=== PATIENT | female | born 2000 | race African-American/Black ===

== ENCOUNTER 2021-03-23 14:54 | Emergency (ER) | payer OTHER, SELFPAY ==
[2021-03-23 15:13] VITALS: BP 132/74; PULSE 92; RESP 18; TEMP 36.6; O2SAT 99; BMI 28.7
[2021-03-23] MEDS: Acetaminophen 325 MG TABLET PO (15:19)
[2021-03-23] MEDS: Ondansetron ODT 4 MG TAB.RAPDIS TRANSLINGU (15:19)
[2021-03-23 16:42] LABS: MANUAL DIFF FLAG NO
[2021-03-23 16:43] LABS: Basophils Percent Auto 0.4 % (0-2); Hemoglobin 15.2 g/dl (12.0-16.0); Imm Gran Abs Auto 0.03 X10*3/uL (0.00-0.03); Imm Gran Pct Auto 0.4 % (0.0-0.4); Lymphocytes Absolute Auto 1.1 X10*3/uL (1.2-4.9); Mean Corpuscular HGB Conc 33.8 g/dl (31.0-35.0); Mean Corpuscular Hemoglobin 29.9 pg (27.0-33.0); Mean Corpuscular Volume 88.6 fL (80.0-98.0); Mean Platelet Volume 10.1 fL (9.4-12.3); Monocytes Absolute Auto 0.5 X10*3/uL (0.1-1.2); Neutrophils Percent Auto 78.2 % (45-73); Platelet Count 258 X10*3/uL (160-400); Red Blood Count 5.08 X10*6/uL (4.20-5.50); Red Cell Distribution Width 13.2 % (11.0-16.0); White Blood Count 7.7 X10*3/uL (4.8-10.8)
[2021-03-23 16:59] LABS: Alanine Aminotransferase 16 U/L (0-31); Albumin Level 4.6 g/dL (3.5-5.0); Alkaline Phosphatase 61 U/L (39-117); Anion Gap 16 (12-20); Aspartate Amino Transferase 23 U/L (5-31); Bilirubin Direct 0.2 mg/dL (0.0-0.5); Bilirubin Total 0.6 mg/dL (0.0-1.0); Blood Urea Nitrogen 10 mg/dL (9-16); Calcium 10.2 mg/dL (8.4-10.2); Carbon Dioxide 28 mmol/L (22-29); Chloride 97 mmol/L (96-108); Creatinine Clr Calc Pharmacy 95.6; Estimated Glomerular Filt Rate > 60; Glucose Random 97 mg/dL (60-115); Lipase 28 U/L (8-78); Potassium 3.7 mmol/L (3.3-5.1); Sodium 137 mmol/L (135-145); Total Protein 7.7 g/dL (6.5-8.0)
== END 2021-03-23 20:08 | disposition left against medical advice (07) ==
PROVIDERS: Emergency Provider Emergency Medicine
DX: R10.9 Unspecified abdominal pain (principal); R11.0 Nausea; R19.7 Diarrhea, unspecified
CPT/HCPCS: 36415; 80048; 80076; 83690; 85025; 99283

== ENCOUNTER 2022-05-16 12:47 | Emergency (ER) | payer SELFPAY ==
--- NOTE | ~2022-05-16 | CT_ITS ---
EXAMINATION: CT ABDOMEN AND PELVIS WITHOUT CONTRAST CLINICAL INFORMATION: Abdominal pain. Colitis. COMPARISON: None TECHNIQUE: Multidetector volumetric imaging was performed from the superior aspect of the liver through the pubic symphysis. Sagittal and coronal reformatted images were obtained on the technologist's workstation. This CT examination was performed using dose optimization techniques as appropriate, variously including the following: *Automated exposure control *Adjustment of mA and/or kV according to patient size (this includes techniques or standardized protocols for targeted exams where dose is matched to indication/reason for exam; i.e. extremities or head) *Use of iterative reconstruction technique DLP: 387 mGy-cm FINDINGS: LUNG BASES: The visualized lung bases are unremarkable. LIVER, GALLBLADDER, AND BILIARY TREE: Small geographic area of hypoattenuation in the left liver lobe adjacent to falciform ligament consistent with focal fatty infiltration. Otherwise, normal hepatic attenuation in size. No liver lesion. No biliary ductal dilation. The gallbladder is unremarkable with no evidence of radiopaque gallstones, gallbladder wall thickening, or obvious pericholecystic inflammatory changes. PANCREAS: Unremarkable. SPLEEN: Unremarkable. ADRENAL GLANDS: Unremarkable. KIDNEYS AND URETERS: The kidneys are normal in size, shape, and attenuation. No hydronephrosis, hydroureter, or calculi seen. No perinephric stranding. BLADDER: Unremarkable. GASTROINTESTINAL TRACT: Somewhat thick-walled appearance of the transverse, descending and rectosigmoid colon which is at least partially secondary to lack of colonic distention. No appreciable pericolonic inflammatory fat stranding. No additional/definite bowel wall thickening. No dilated bowel loops. Normal appendix. Some high density ingested material in the ascending colon, nonspecific. No ascites or free air. ABDOMINAL WALL: No significant hernia is appreciated. LYMPH NODES: No lymphadenopathy. VASCULAR: Unremarkable. PELVIC VISCERA: IUD appears properly positioned in the uterus. Gynecologic structures otherwise grossly unremarkable, limited assessment. OSSEOUS STRUCTURES: Unremarkable. CT/CT abdomen pelvis wo IV con IMPRESSION: 1. Somewhat thick-walled appearance of the transverse, descending and rectosigmoid colon which is at least partially secondary to lack of colonic distention as opposed to true mild colonic wall thickening. No accompanying pericolonic inflammatory change. Cannot entirely exclude mild colitis. No other acute intra-abdominal process.
[2022-05-16 12:58] VITALS: BP 118/80; BP 120/73; PULSE 80; PULSE 90; RESP 18; TEMP 36.8; O2SAT 94; O2SAT 96; BMI 24.7
--- NOTE | 2022-05-16 13:01 | ED_ITS ---
HPI - General Adult General Chief complaint: Abdominal Pain Stated complaint: NAUSEA,VOMITING,BRIGHT RED BLOOD IN STOOL 1 WEEK Time Seen by Provider: 05/16/22 18:03 Related Data Previous Rx's Medication Instructions Recorded dicyclomine 20 mg tablet 20 mg PO BID #30 tabs 05/16/22 omeprazole magnesium 20 mg 20 mg PO BID #60 tabs 05/16/22 tablet,delayed release (Prilosec OTC) ondansetron 4 mg disintegrating 4 mg PO Q8H PRN nausea and 05/16/22 tablet vomiting #20 tabs promethazine 25 mg tablet 25 mg PO TID PRN nausea and 05/16/22 vomiting #30 tabs Allergies Allergy/AdvReac Type Severity Reaction Status Date / Time No Known Allergies Allergy Verified 05/16/22 12:59 [facility] Social History Social History Advance Directives: No Advance Directives Information Provided: No Physical Exam ED Vital Signs: BMI result Body Mass Index 24.7 Course Course Course Narrative: RME: 21 yold female with pmh presents to the for abdominal pain, blood in stool, nausea, vomitting, diarrhea for the past week. patient has pmh of colitis. patient states no vaginal bleeding, dysuria, or hematuria. Diffuse abdominal tenderness and more on the LLQ. Labs ordered Medications Administered Discontinued Medications Generic Name Dose Route Start Last Admin Trade Name Freq PRN Reason Stop Dose Admin Sodium Chloride 1,000 mls @ 999 mls/hr 05/16/22 18:30 05/16/22 20:45 Ns IV 05/16/22 19:30 Infused .Q1H1M FELIX Infusion Ondansetron HCl 4 mg 05/16/22 18:22 05/16/22 19:37 Ondansetron Hcl 4 Mg/2 Ml Vial IVPUSH 05/16/22 18:23 4 mg ONCE ONE Administration Pantoprazole Sodium 80 mg 05/16/22 18:22 05/16/22 19:36 Pantoprazole Sodium 40 Mg/10 Ml Vial IVPUSH 05/16/22 18:23 80 mg ONCE ONE Administration Medical Decision Making Lab Data 05/16/22 16:33 05/16/22 16:33 Labs: Lab Results 05/16/22 05/16/22 05/16/22 Range/Units 16:33 16:33 16:33 WBC 9.3 (4.8-10.8) X10*3/uL RBC 5.50 (4.20-5.50) X10*6/uL Hgb 16.8 H (12.0-16.0) g/dl Hct 49.3 H (37.0-47.0) % MCV 89.6 (80.0-98.0) fL MCH 30.5 (27.0-33.0) pg MCHC 34.1 (31.0-35.0) g/dl RDW 13.6 (11.0-16.0) % Plt Count 317 (160-400) X10*3/uL MPV 10.0 (9.4-12.3) fL Immature Gran % (Auto) 0.6 H (0.0-0.4) % Neut % (Auto) 76.6 H (45-73) % Lymph % (Auto) 16.2 L (20-40) % [place] % (Auto) 6.2 (2-11) % Eos % (Auto) 0.0 (0-4) % Baso % (Auto) 0.4 (0-2) % Lymph # (Auto) 1.5 (1.2-4.9) X10*3/uL [place] # (Auto) 0.6 (0.1-1.2) X10*3/uL Eos # (Auto) 0.0 (0.0-0.4) X10*3/uL Baso # (Auto) 0.0 (0.0-0.2) X10*3/uL Abs Immat Gran (auto) 0.06 H (0.00-0.03) X10*3/uL Absolute Neuts (auto) 7.1 (2.0-8.3) x10*3/uL Absolute Nucleated RBC 0.000 (0.0-0.012) X10*3/uL Nucleated RBC % (auto) 0.0 (0.0-0.2) /100WBC PT 13.8 H (10.0-13.1) SEC INR 1.2 H (0.9-1.1) APTT 36.7 H (26.0-36.4) SEC Sodium 140 (135-145) mmol/L Potassium 3.6 (3.3-5.1) mmol/L Chloride 96 (96-108) mmol/L Carbon Dioxide 30 H (22-29) mmol/L Anion Gap 18 (12-20) BUN 8 L (9-16) mg/dL Creatinine 0.84 (0.5-1.4) mg/dL Estim Creat Clear Calc 90.4 Estimated GFR > 60 Random Glucose 86 (60-115) mg/dL Calcium 10.1 (8.4-10.2) mg/dL Total Bilirubin 0.6 (0.0-1.0) mg/dL AST 22 (5-31) U/L ALT 16 (0-31) U/L Alkaline Phosphatase 65 (39-117) U/L Total Protein 7.7 (6.5-8.0) g/dL Albumin 4.7 (3.5-5.0) g/dL Beta HCG, Quant < 2 mIU/mL Stool Leukocytes, Qual (NEGATIVE) Stool H. pylori Ag Influenza Type A (PCR) (Negative) Influenza Type B (PCR) (Negative) RSV RNA Qual (PCR) (Negative) SARS-CoV-2 RNA (RT-PCR) (Negative) 05/16/22 05/16/22 05/16/22 Range/Units 16:33 19:10 19:10 WBC (4.8-10.8) X10*3/uL RBC (4.20-5.50) X10*6/uL Hgb (12.0-16.0) g/dl Hct (37.0-47.0) % MCV (80.0-98.0) fL MCH (27.0-33.0) pg MCHC (31.0-35.0) g/dl RDW (11.0-16.0) % Plt Count (160-400) X10*3/uL MPV (9.4-12.3) fL Immature Gran % (Auto) (0.0-0.4) % Neut % (Auto) (45-73) % Lymph % (Auto) (20-40) % [place] % (Auto) (2-11) % Eos % (Auto) (0-4) % Baso % (Auto) (0-2) % Lymph # (Auto) (1.2-4.9) X10*3/uL [place] # (Auto) (0.1-1.2) X10*3/uL Eos # (Auto) (0.0-0.4) X10*3/uL Baso # (Auto) (0.0-0.2) X10*3/uL Abs Immat Gran (auto) (0.00-0.03) X10*3/uL Absolute Neuts (auto) (2.0-8.3) x10*3/uL Absolute Nucleated RBC (0.0-0.012) X10*3/uL Nucleated RBC % (auto) (0.0-0.2) /100WBC PT (10.0-13.1) SEC INR (0.9-1.1) APTT (26.0-36.4) SEC Sodium (135-145) mmol/L Potassium (3.3-5.1) mmol/L Chloride (96-108) mmol/L Carbon Dioxide (22-29) mmol/L Anion Gap (12-20) BUN (9-16) mg/dL Creatinine (0.5-1.4) mg/dL Estim Creat Clear Calc Estimated GFR Random Glucose (60-115) mg/dL Calcium (8.4-10.2) mg/dL Total Bilirubin (0.0-1.0) mg/dL AST (5-31) U/L ALT (0-31) U/L Alkaline Phosphatase (39-117) U/L Total Protein (6.5-8.0) g/dL Albumin (3.5-5.0) g/dL Beta HCG, Quant mIU/mL Stool Leukocytes, Qual NEGATIVE (NEGATIVE) Stool H. pylori Ag SEE NOTE Influenza Type A (PCR) NEGATIVE (Negative) Influenza Type B (PCR) NEGATIVE (Negative) RSV RNA Qual (PCR) NEGATIVE (Negative) SARS-CoV-2 RNA (RT-PCR) NEGATIVE (Negative) Discharge Plan Discharge Clinical Impression: Abdominal pain Patient Disposition: Home, Self-Care Instructions: Abdominal Pain (ED) Additional Instructions: Follow-up with Gastroenterology, Dr. Vázquez. See provided phone number for referral. Continue to take Zofran for nausea if needed. You can take Phenergan if Zofran is not working. It will make you drowsy however. Prilosec for acid suppression. Take this instead of a Pepcid/famotidine. Prescriptions: New dicyclomine 20 mg tablet 20 mg PO BID Qty: 30 0RF omeprazole magnesium [Prilosec OTC] 20 mg tablet,delayed release (DR/EC) 20 mg PO BID Qty: 60 0RF promethazine 25 mg tablet 25 mg PO TID PRN (Reason: nausea and vomiting) Qty: 30 0RF Rx Instructions: Caution drowsiness ondansetron 4 mg tablet,disintegrating 4 mg PO Q8H PRN (Reason: nausea and vomiting) Qty: 20 0RF Stand Alone Forms: Work/School Release Interventions: ED Discharge Assessment Last Done: 05/16/22 20:58 Discharge Date/Time: 05/16/22 20:59
[2022-05-16 16:44] LABS: MANUAL DIFF FLAG NO
[2022-05-16 16:50] LABS: Basophils Percent Auto 0.4 % (0-2); Hematocrit 49.3 % (37.0-47.0); Hemoglobin 16.8 g/dl (12.0-16.0); Imm Gran Abs Auto 0.06 X10*3/uL (0.00-0.03); Imm Gran Pct Auto 0.6 % (0.0-0.4); Lymphocytes Absolute Auto 1.5 X10*3/uL (1.2-4.9); Lymphocytes Percent Auto 16.2 % (20-40); Mean Corpuscular HGB Conc 34.1 g/dl (31.0-35.0); Mean Corpuscular Hemoglobin 30.5 pg (27.0-33.0); Mean Corpuscular Volume 89.6 fL (80.0-98.0); Monocytes Absolute Auto 0.6 X10*3/uL (0.1-1.2); Monocytes Percent Auto 6.2 % (2-11); Neutrophils Absolute Auto 7.1 x10*3/uL (2.0-8.3); Neutrophils Percent Auto 76.6 % (45-73); Platelet Count 317 X10*3/uL (160-400); Red Cell Distribution Width 13.6 % (11.0-16.0); White Blood Count 9.3 X10*3/uL (4.8-10.8)
[2022-05-16 16:55] LABS: INTERNATIONAL NORM RATIO 1.2 (0.9-1.1); Prothrombin Time 13.8 SEC (10.0-13.1)
[2022-05-16 16:57] LABS: Partial Thromboplastin Time 36.7 SEC (26.0-36.4)
[2022-05-16 17:13] LABS: Alanine Aminotransferase 16 U/L (0-31); Albumin Level 4.7 g/dL (3.5-5.0); Alkaline Phosphatase 65 U/L (39-117); Anion Gap 18 (12-20); Aspartate Amino Transferase 22 U/L (5-31); Bilirubin Total 0.6 mg/dL (0.0-1.0); Blood Urea Nitrogen 8 mg/dL (9-16); Calcium 10.1 mg/dL (8.4-10.2); Carbon Dioxide 30 mmol/L (22-29); Chloride 96 mmol/L (96-108); Creatinine Clr Calc Pharmacy 90.4; Estimated Glomerular Filt Rate > 60; Glucose Random 86 mg/dL (60-115); HCG Quantitative < 2 mIU/mL; Potassium 3.6 mmol/L (3.3-5.1); Sodium 140 mmol/L (135-145); Total Protein 7.7 g/dL (6.5-8.0)
[2022-05-16 17:43] LABS: Influenza A PCR NEGATIVE (Negative); Influenza B PCR NEGATIVE (Negative); Resp Syncy Virus RNA Qual PCR NEGATIVE (Negative); SARS COV2 PCR INHOUSE NEGATIVE (Negative)
--- NOTE | 2022-05-16 18:23 | ED_ITS ---
HPI - Abdominal Pain General Chief Complaint: Abdominal Pain Stated Complaint: NAUSEA,VOMITING,BRIGHT RED BLOOD IN STOOL 1 WEEK Time Seen by Provider: 05/16/22 18:03 Source: patient Limitations: no limitations History of Present Illness HPI narrative: Patient complaining of abdominal pain with nausea vomiting and bloody stool. Patient has a history of abdominal pain for the past year and a half with multiple ED visits to other facilities. 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 She states she was supposed to get a colonoscopy and endoscopy this month in [place] [employer], but lost her insurance for when she quit her job to become a full- time student. She is currently applying for insurance so she can get the procedure done. She states her kiln feeder was suspicious she might have had inflammatory bowel disease. 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 She was treated with antiemetics, anti acids, and antispasmodics. She has never been on antibiotics for this. She is unaware of any specific causative agent such as foods although she has been trying to track which he is eating to see if there is a factor. She states she quit drinking coffee. She occasionally drinks alcohol and occasionally uses marijuana but does not use daily. Occasional tobacco, also not daily. No other significant medical issues. No allergies. She states she feels tired but denies fevers. Related Data Previous Rx's Medication Instructions Recorded dicyclomine 20 mg tablet 20 mg PO BID #30 tabs 05/16/22 omeprazole magnesium 20 mg 20 mg PO BID #60 tabs 05/16/22 tablet,delayed release (Prilosec OTC) ondansetron 4 mg disintegrating 4 mg PO Q8H PRN nausea and 05/16/22 tablet vomiting #20 tabs promethazine 25 mg tablet 25 mg PO TID PRN nausea and 05/16/22 vomiting #30 tabs Allergies Allergy/AdvReac Type Severity Reaction Status Date / Time No Known Allergies Allergy Verified 05/16/22 12:59 Review of Systems Comments: No fevers or chills. Positive malaise Comments: No chest pain Comments: No dyspnea Comments: Abdominal pain with nausea vomiting and bloody stools Comments: No musculoskeletal complaints Comments: No rash Comments: No focal weakness PMFSH Social History Social History Advance Directives: No Advance Directives Information Provided: No Physical Exam ED Vital Signs: Vital Signs - 24 hr 05/16/22 12:58 05/16/22 18:51 05/16/22 20:15 Temperature 98.2 F 98.0 F Pulse Rate 80 66 77 Respiratory Rate 18 16 16 Blood Pressure 120/73 129/78 119/76 Pulse Oximetry 96 99 96 Oxygen Delivery Method Room Air Room Air BMI result Body Mass Index 24.7 Const Other: Awake alert. No acute distress Resp Other: Clear and equal. No wheezes rhonchi rhonchi Cardio Other: And regular rate and rhythm without murmurs rubs or gallops GI Other: Soft. Nondistended. Mild epigastric tenderness to palpation. No guarding or rebound. Normoactive bowel sounds. Skin Other: Warm and dry without rash Neuro Other: Nonfocal exam Medical Decision Making Medical Decision Making MDM Narrative: Patient with acute on chronic abdominal pain with chronic diarrhea. Intermittent episodes of vomiting. Inflammatory bowel disease is very possible. Infectious colitis is possible but less likely given the time line. Irritable bowel also possible. Secondary issue such as dehydration or anemia. Will treat with IV fluids and IV Zofran. 18:29. White count is normal. Hemoglobin is elevated at 16.8. BUN creatinine are normal however. Bicarb is 30 but remainder of electrolytes are unremarkable. Continue with current plan and if patient is able to give a sample we will send off stool for culture, ova parasites, white cells. Will consider an empiric antibiotic coverage. CT scan was already ordered, and will wait for results 20:40. Patient is feeling improved down to a 5/[address] scan shows mild thickening of the colon but no inflammatory changes surrounding. Possibly due to underdistention. Stool sample shows no leukocytes. She is stable for discharge home at this time Lab Data 05/16/22 16:33 05/16/22 16:33 Labs: Lab Results 05/16/22 05/16/22 05/16/22 Range/Units 16:33 16:33 16:33 WBC 9.3 (4.8-10.8) X10*3/uL RBC 5.50 (4.20-5.50) X10*6/uL Hgb 16.8 H (12.0-16.0) g/dl Hct 49.3 H (37.0-47.0) % MCV 89.6 (80.0-98.0) fL MCH 30.5 (27.0-33.0) pg MCHC 34.1 (31.0-35.0) g/dl RDW 13.6 (11.0-16.0) % Plt Count 317 (160-400) X10*3/uL MPV 10.0 (9.4-12.3) fL Immature Gran % (Auto) 0.6 H (0.0-0.4) % Neut % (Auto) 76.6 H (45-73) % Lymph % (Auto) 16.2 L (20-40) % [place] % (Auto) 6.2 (2-11) % Eos % (Auto) 0.0 (0-4) % Baso % (Auto) 0.4 (0-2) % Lymph # (Auto) 1.5 (1.2-4.9) X10*3/uL [place] # (Auto) 0.6 (0.1-1.2) X10*3/uL Eos # (Auto) 0.0 (0.0-0.4) X10*3/uL Baso # (Auto) 0.0 (0.0-0.2) X10*3/uL Abs Immat Gran (auto) 0.06 H (0.00-0.03) X10*3/uL Absolute Neuts (auto) 7.1 (2.0-8.3) x10*3/uL Absolute Nucleated RBC 0.000 (0.0-0.012) X10*3/uL Nucleated RBC % (auto) 0.0 (0.0-0.2) /100WBC PT 13.8 H (10.0-13.1) SEC INR 1.2 H (0.9-1.1) APTT 36.7 H (26.0-36.4) SEC Sodium 140 (135-145) mmol/L Potassium 3.6 (3.3-5.1) mmol/L Chloride 96 (96-108) mmol/L Carbon Dioxide 30 H (22-29) mmol/L Anion Gap 18 (12-20) BUN 8 L (9-16) mg/dL Creatinine 0.84 (0.5-1.4) mg/dL Estim Creat Clear Calc 90.4 Estimated GFR > 60 Random Glucose 86 (60-115) mg/dL Calcium 10.1 (8.4-10.2) mg/dL Total Bilirubin 0.6 (0.0-1.0) mg/dL AST 22 (5-31) U/L ALT 16 (0-31) U/L Alkaline Phosphatase 65 (39-117) U/L Total Protein 7.7 (6.5-8.0) g/dL Albumin 4.7 (3.5-5.0) g/dL Beta HCG, Quant < 2 mIU/mL Stool Leukocytes, Qual (NEGATIVE) Influenza Type A (PCR) (Negative) Influenza Type B (PCR) (Negative) RSV RNA Qual (PCR) (Negative) SARS-CoV-2 RNA (RT-PCR) (Negative) 05/16/22 05/16/22 Range/Units 16:33 19:10 WBC (4.8-10.8) X10*3/uL RBC (4.20-5.50) X10*6/uL Hgb (12.0-16.0) g/dl Hct (37.0-47.0) % MCV (80.0-98.0) fL MCH (27.0-33.0) pg MCHC (31.0-35.0) g/dl RDW (11.0-16.0) % Plt Count (160-400) X10*3/uL MPV (9.4-12.3) fL Immature Gran % (Auto) (0.0-0.4) % Neut % (Auto) (45-73) % Lymph % (Auto) (20-40) % [place] % (Auto) (2-11) % Eos % (Auto) (0-4) % Baso % (Auto) (0-2) % Lymph # (Auto) (1.2-4.9) X10*3/uL [place] # (Auto) (0.1-1.2) X10*3/uL Eos # (Auto) (0.0-0.4) X10*3/uL Baso # (Auto) (0.0-0.2) X10*3/uL Abs Immat Gran (auto) (0.00-0.03) X10*3/uL Absolute Neuts (auto) (2.0-8.3) x10*3/uL Absolute Nucleated RBC (0.0-0.012) X10*3/uL Nucleated RBC % (auto) (0.0-0.2) /100WBC PT (10.0-13.1) SEC INR (0.9-1.1) APTT (26.0-36.4) SEC Sodium (135-145) mmol/L Potassium (3.3-5.1) mmol/L Chloride (96-108) mmol/L Carbon Dioxide (22-29) mmol/L Anion Gap (12-20) BUN (9-16) mg/dL Creatinine (0.5-1.4) mg/dL Estim Creat Clear Calc Estimated GFR Random Glucose (60-115) mg/dL Calcium (8.4-10.2) mg/dL Total Bilirubin (0.0-1.0) mg/dL AST (5-31) U/L ALT (0-31) U/L Alkaline Phosphatase (39-117) U/L Total Protein (6.5-8.0) g/dL Albumin (3.5-5.0) g/dL Beta HCG, Quant mIU/mL Stool Leukocytes, Qual NEGATIVE (NEGATIVE) Influenza Type A (PCR) NEGATIVE (Negative) Influenza Type B (PCR) NEGATIVE (Negative) RSV RNA Qual (PCR) NEGATIVE (Negative) SARS-CoV-2 RNA (RT-PCR) NEGATIVE (Negative) Medications Administered Discontinued Medications Generic Name Dose Route Start Last Admin Trade Name Freq PRN Reason Stop Dose Admin Sodium Chloride 1,000 mls @ 999 mls/hr 05/16/22 18:30 05/16/22 19:31 Ns IV 05/16/22 19:30 999 mls/hr .Q1H1M FELIX Administration Ondansetron HCl 4 mg 05/16/22 18:22 05/16/22 19:37 Ondansetron Hcl 4 Mg/2 Ml Vial IVPUSH 05/16/22 18:23 4 mg ONCE ONE Administration Pantoprazole Sodium 80 mg 05/16/22 18:22 05/16/22 19:36 Pantoprazole Sodium 40 Mg/10 Ml Vial IVPUSH 05/16/22 18:23 80 mg ONCE ONE Administration Discharge Plan Discharge Clinical Impression: Abdominal pain Patient Disposition: Home, Self-Care Instructions: Abdominal Pain (ED) Additional Instructions: Follow-up with Gastroenterology, Dr. Vázquez. See provided phone number for referral. Continue to take Zofran for nausea if needed. You can take Phenergan if Zofran is not working. It will make you drowsy however. Prilosec for acid suppression. Take this instead of a Pepcid/famotidine. Prescriptions: New dicyclomine 20 mg tablet 20 mg PO BID Qty: 30 0RF omeprazole magnesium [Prilosec OTC] 20 mg tablet,delayed release (DR/EC) 20 mg PO BID Qty: 60 0RF promethazine 25 mg tablet 25 mg PO TID PRN (Reason: nausea and vomiting) Qty: 30 0RF Rx Instructions: Caution drowsiness ondansetron 4 mg tablet,disintegrating 4 mg PO Q8H PRN (Reason: nausea and vomiting) Qty: 20 0RF
[2022-05-16 18:51] VITALS: BP 129/78; PULSE 66; RESP 16; O2SAT 99
[2022-05-16] MEDS: 0.9 % Sodium Chloride 1,000 ML 999 ML IV (19:31)
[2022-05-16] MEDS: Pantoprazole Sodium 40 MG/10 ML VIAL 80 MG IVPUSH (19:36)
[2022-05-16] MEDS: ondansetron HCL 4 MG/2 ML VIAL IVPUSH (19:37)
[2022-05-16 20:15] VITALS: BP 119/76; PULSE 77; RESP 16; TEMP 36.7; O2SAT 96
[2022-05-16 20:36] LABS: Leukocytes Stool Qualitative NEGATIVE (NEGATIVE)
== END 2022-05-16 20:59 | disposition home or self-care (01) ==
PROVIDERS: Physician Assistant; Emergency Provider Emergency Medicine
DX: R10.9 Unspecified abdominal pain (principal); Z20.822 Contact with and (suspected) exposure to COVID-19; Z20.828 Contact with and (suspected) exposure to other viral communicable diseases
CPT/HCPCS: 0241U; 36415; 74176; 80053; 84702; 85025; 85610; 85730; 87338; 89055; 96361; 96374; 96375; 99283; 99284; J2405